=== PATIENT | male | born 1990 | race Caucasian/White ===

== ENCOUNTER 2018-05-12 23:46 | Emergency (ER) | payer SELFPAY ==
[~2018-05-12] VITALS: Ht 177.8 cm; Wt 72.6 kg
[2018-05-13 00:08] VITALS: BP 120/81
--- NOTE | 2018-05-13 01:08 | Emergency Room Report ---
History of Present Illness General Chief Complaint: Multiple Trauma/Fall Source: Patient Present Illness HPI Slip and fall off skateboard, shortly [employer], can walk there is some pain mid- lateral right foot. No other injury/complaint. Allergies: Coded Allergies: No Known Allergies (Unverified , 05/12/18) Nursing Documentation-[facility] Past Medical History: No Stated History Review of Systems All Other Systems: limited Physical Exam Vital Signs Date Time Temp Pulse Resp B/P (MAP) Pulse Ox O2 Delivery O2 Flow Rate FiO2 05/12/18 23:48 75 16 139/81 95 Room Air 05/13/18 00:08 98.2 General Appearance: well appearing, no apparent distress Head: normocephalic, atraumatic ENT: hearing grossly normal, normal voice Neck: full range of motion, supple Respiratory: no respiratory distress, speaking full sentences Musculoskeletal: swelling, other - there is some swelling dorsum foot, however no bony tenderness to foot or ankle, good rom Neurologic: alert, normal gait Psychiatric: mood/affect normal Skin: no rash Medical Decision Making Diagnostic Impression: Primary Impression: Sprain of foot, left Last Vital Signs Date Time Temp Pulse Resp B/P (MAP) Pulse Ox O2 Delivery O2 Flow Rate FiO2 05/13/18 00:10 71 18 Room Air 05/13/18 00:08 98.2 120/81 97 Status: improved Disposition: HOME, SELF-CARE Condition: Stable Referrals: NOT CHOSEN IPA/MD,REFERRING (PCP) Patient Instructions: Foot Sprain Raheem Vidal M.D. May 13, 2018 01:08
[2018-05-13 01:28] VITALS: BP 120/81
[2018-05-14] MEDS ORDERED: IBUPROFEN600 MG ORAL (13:00)
[2018-05-14] MEDS ORDERED: BACITRACIN-P28.35 GM TP (13:00)
== END 2018-05-13 01:25 | disposition home or self-care (01) ==
LOC: EMR 23:59
DX: S93.601A Unspecified sprain of right foot, initial encounter (principal); V00.131A Fall from skateboard, initial encounter; Y92.9 Unspecified place or not applicable
CPT/HCPCS: 99282

== ENCOUNTER 2018-05-14 11:53 | Emergency (ER) | payer SELFPAY ==
[~2018-05-14] VITALS: Ht 152.4 cm; Wt 72.6 kg
--- NOTE | 2018-05-14 12:26 | Emergency Room Report ---
History of Present Illness General Chief Complaint: Lower Extremity Injury Source: Patient (Jayant Griffin) Present Illness HPI 27-year-old male patient presents ER complaining of right foot pain 2 days. States that he was skateboarding and fell off his skateboard and twisted his foot. Patient was seen in the ER yesterday, no x-rays taken at that time due to "not wanting to wait", was diagnosed with sprain and discharged home with crutches. Patient currently walking on crutches now. Reports pain with ambulation and putting "weight on the foot". Reports swelling. Reports took ibuprofen for pain, denies wanting pain medication currently. Reports small cut on dorsum of right big toe, states pain there. (Jayant Griffin) Allergies: Coded Allergies: No Known Allergies (Unverified , 05/12/18) Patient History Past Medical History: see triage record Reviewed Nursing Documentation: PMH: Agreed; PSxH: Agreed (Jayant Griffin) Nursing Documentation-PMH Past Medical History: No Stated History (Jayant Griffin) Review of Systems All Other Systems: negative except mentioned in HPI (Jayant Griffin) Physical Exam Vital Signs Date Time Temp Pulse Resp B/P (MAP) Pulse Ox O2 Delivery O2 Flow Rate FiO2 05/14/18 12:03 98.2 55 17 125/76 99 Room Air Sp02 EP Interpretation: reviewed, normal General Appearance: well appearing, no apparent distress, alert, GCS 15, non- toxic Head: normocephalic, atraumatic Eyes: bilateral eye normal inspection, bilateral eye PERRL ENT: hearing grossly normal, normal pharynx, no angioedema, normal voice, uvula midline, moist mucus membranes Neck: full range of motion Respiratory: lungs clear, normal breath sounds, no rhonchi, no respiratory distress, no accessory muscle use, no wheezing, speaking full sentences Cardiovascular #2: 2+ dorsalis pedis (R), 2+ dorsalis pedis (L) Musculoskeletal: back normal, digits/nails normal, gait/station normal, decreased range of motion - secondary to pain, swelling - right foot, other - NVI, cap Refill less than 2 seconds, sensation intact to light touch, soft compartments, tender - dorsum of the right midfoot and right big toe Psychiatric: mood/affect normal Skin: abrasions - 1 cm abrasion on dorsum of right big toe, no surrounding erythema or edema, no fluctuance or induration (Jayant Griffin) Medical Decision Making PA Attestation Dr. Barragan is my supervising Physician whom patient management has been discussed with. (Jayant Griffin) Diagnostic Impression: Primary Impression: Right foot sprain ER Course Pt. presents to the ED c/o right foot pain. Ddx considered but are not limited to fracture, sprain, strain, contusion, dislocation. No erythema, no warmth to touch, no fever, nontoxic appearing, low suspicion for septic joint. Soft compartments, no pulselessness, no pallor, no paresthesias, low suspicion for compartment syndrome at this time. Vital signs: are WNL, pt. is afebrile Ordered X-ray and pain medication. ER COURSE patient declined pain medication. An X-ray of the right foot shows no acute fracture per the preliminary reading. Oscar wrap was applied to the foot and was checked afterwards by me showing good alignment and support with distal neurovascular functioning intact. Crutches declined, patient has crutches. Patient instructed on RICE method: rest, ice, compression, elevation. Patient instructed on rest, ice and heat. Patient instructed to be NWB Contact information for orthopedic urgent care provided, follow-up with urgent care if unable to followup with primary care provider and get referral to strategic planning specialist. Followup with primary care provider. Discuss referral to ortho/pain management/ PT as needed. Discuss further imaging with MRI/CT as needed. DISCHARGE: -Rx provided for Ibuprofen for pain symptoms. At this time pt. is stable for d/c to home. Patient is resting comfortably, in no acute distress, nontoxic appearing, talking without difficulty. Will provide printed patient care instructions, and any necessary prescriptions. Patient instructed to follow with primary care provider in 3 - 5 days and to request further follow-up as needed. Care plan and follow up instructions have been discussed with the patient prior to discharge. Take medications as directed. Patient questions asked and answered. Patient reports understanding and agreement to treatment plan. ER precautions given, patient instructed to return to ER immediately for any new or worsening of symptoms. - Please note that this Emergency Department Report was dictated using [employer] hr manager technology software, occasionally this can lead to erroneous entry secondary to interpretation by the dictation equipment. (Jayant Griffin) Other X-Ray Diagnostic Results Other X-Ray Diagnostic Results : X-Ray ordered: right foot # of Views/Limited Vs Complete: 3 View Indication: Pain EP Interpretation: Yes PA Xray: Interpretation reviewed, by supervising MD, and agrees with findings. Interpretation: no dislocation, no soft tissue swelling, no fractures Impression: No acute disease PA Scribe Text Peter Griffin PA-C (Jayant Griffin) Other X-Ray Diagnostic Results : Electronically Signed by: Scribe documentation reviewed by me and is accurate, Chris Barragan MD (Chris Barragan MD) Last Vital Signs Date Time Temp Pulse Resp B/P (MAP) Pulse Ox O2 Delivery O2 Flow Rate FiO2 05/14/18 12:03 98.2 55 17 125/76 99 Room Air Status: improved (Jayant Griffin) Disposition: HOME, SELF-CARE Condition: Stable Scripts Ibuprofen* (MOTRIN*) 600 Mg Tablet 600 MG ORAL Q8H PRN for For Pain, #30 TAB 0 Refills Prov: Jayant Griffin 05/14/18 Bacitracin/Polymyxin B Sulfate (BACITRACIN-POLYMYXIN OINTMENT) 28.35 Gm Oint...g. 1 APPLIC TP BID, #28 GM Prov: Jayant Griffin 05/14/18 Patient Instructions: Foot Sprain Additional Instructions: Patient instructed to follow up with primary care provider and discuss further referral to orthopedics/physical therapy/pain management as needed. If unable to followup with PCP, followup with orthopedic urgent care in 5-7 days , call to schedule appointment. Patient instructed on RICE method: rest, ice, compression, elevation. Patient instructed to NWB Take medications as directed. Patient questions asked and answered. ER precautions given, patient instructed to return to ER immediately for any new or worsening of symptoms. [facility] [address] [facility] [address] [facility], [address] [email or web address] Jayant Griffin May 14, 2018 12:26 Chris Barragan MD May 16, 2018 06:39
[2018-05-14] MEDS ORDERED: Bacitracin Oint UD TOPIC ONE (12:45)
[2018-05-14] MEDS ORDERED: BACITRACIN-P28.35 GM TP (13:00)
[2018-05-14] MEDS ORDERED: IBUPROFEN600 MG ORAL (13:00)
--- NOTE | 2018-05-14 13:05 | Diagnostic Imaging Report ---
Indication: Foot Pain Comparison: None Findings: 3 views of the right foot were obtained. No acute fractures, malalignment, erosions or periostitis are identified. Soft tissues are unremarkable. Impression: No acute findings.
[2018-05-14 13:34] VITALS: BP 125/76
== END 2018-05-14 13:20 | disposition home or self-care (01) ==
LOC: EMR 13:05
DX: S93.601A Unspecified sprain of right foot, initial encounter (principal); V00.131A Fall from skateboard, initial encounter; Y93.51 Activity, roller skating (inline) and skateboarding; Y92.9 Unspecified place or not applicable
CPT/HCPCS: 99283